=== PATIENT | male | born 1940 | race Caucasian/White ===

== ENCOUNTER 2016-04-29 09:12 | Emergency (ER) | payer MEDICAID ==
[~2016-04-29] VITALS: Wt 64.5 kg
[2016-04-29] MEDS ORDERED: BELLADONNA/PHENOBARBITAL TAB PO STA (10:09)
[2016-04-29] MEDS ORDERED: FAMOTIDINE 20 MG TAB PO STA (10:09)
[2016-04-29] MEDS ORDERED: LIDOCAINE/MYLANTA 40 ML BTL PO STA (10:09)
[2016-04-29] MEDS ORDERED: KETOROLAC 30 MG INJ IM STA (10:09)
[2016-04-29] MEDS ORDERED: FAMO40TA52 PO (11:29)
[2016-04-29] MEDS ORDERED: MAG355OR14 PO (11:29)
--- NOTE | 2016-04-29 11:31 | ERD ---
ER Documentation Chief Complaint Date/Time DATE: 04/29/16 TIME: 11:30 Chief Complaint luq pain HPI 75-year-old man complains of 2 days of left upper quadrant cramping he states it radiates up to the left chest although he has had no isolated chest pain, no exertional chest pain. He denies fevers or chills, no vomiting or diarrhea, no weight loss, no melena or blood per rectum. Patient states he has been belching more than usual as well. Patient denies headache or blurry vision, no recent travel or recent antibiotic use. ROS All systems reviewed and are negative except as per history of present illness. Medications Home Meds Active Scripts Famotidine* (Famotidine*) 40 Mg Tablet, 40 MG PO DAILY, #30 TAB Prov:ELISE GÓMZE MD 04/29/16 Mag Hydrox/Al Hydrox/Simeth (Maalox Advanced Suspension) 355 Ml Oral.susp, 2 TSP PO TID for PAIN, #24 OZ Prov:ELISE GÓMEZ MD 04/29/16 Allergies Allergies: Coded Allergies: No Known Allergy (Verified Allergy, Unknown, 05/01/07) PMhx/Soc None History of Surgery: Yes (ABDOMINAL HERNIA) Anesthesia Reaction: No Hx Neurological Disorder: No Hx Cardiac Disorders: No Hx Psychiatric Problems: No Hx Miscellaneous Medical Probl: No Hx Alcohol Use: No Hx Substance Use: No Hx Tobacco Use: No Smoking Status: Never smoker FmHx Family History: No diabetes Physical Exam Vitals Vital Signs Date Time Temp Pulse Resp B/P Pulse Ox O2 Delivery O2 Flow Rate FiO2 04/29/16 12:03 97.9 58 18 168/71 100 Room Air 04/29/16 09:23 97.8 74 20 175/90 97 Physical Exam GENERAL: Well-developed, well-nourished, well-hydrated, in no apparent distress , looks nontoxic in appearance HEENT: Moist mucous membranes, pink conjunctiva, no cervical spine tenderness or step-off deformities, no goiter, no jaundice or icterus, extraocular movements intact without pain. No submandibular induration, and no pharyngeal erythema NEURO: Alert and oriented 3, cranial nerves II through XII intact bilaterally, pupils equal round reactive to light, no focal deficits or facial asymmetry, sensation intact distally Strength 5/5 in upper and lower extremities bilaterally CARDIAC: Regular rate and rhythm, no murmurs rubs or gallops LUNGS: Clear bilaterally no wheezing crackles or stridor ABDOMEN: Soft nontender, no guarding, no rigidity, no rebound, no psoas sign no obturator sign. Normoactive bowel sounds SKIN: Warm and dry to touch, no abrasions, contusions, or hematomas, no lacerations, no ecchymosis, no target lesions, and without ulcers EXTREMITIES: No clubbing cyanosis or edema, calves are bilaterally symmetrical, no Homans sign, no popliteal cord sign. Distal pulses equal and bilateral PSYCH: Normal affect without agitation or irritability Results 24 hrs Laboratory Tests Test 04/29/16 10:21 Troponin I < 0.012ng/ml Current Medications Medications (Trade) Dose Ordered Sig/Abel Route PRN Reason Start Time Stop Time Status Last Admin Dose Admin Famotidine (Pepcid) 40 mg ONCE STAT PO 04/29/16 10:09 04/29/16 10:10 DC 04/29/16 10:17 Miscellaneous Medication (Gi Cocktail (2)) 40 ml ONCE STAT PO 04/29/16 10:09 04/29/16 10:10 DC 04/29/16 10:17 Belladonna/ Phenobarbital () 2 tab ONCE STAT PO 04/29/16 10:09 04/29/16 10:10 DC 04/29/16 10:17 Ketorolac Tromethamine (Toradol) 30 mg ONCE STAT IM 04/29/16 10:09 04/29/16 10:10 DC 04/29/16 10:17 Procedures/MDM I administered Maalox suspension, famotidine 40 mg p.o., and Toradol 30 mg intramuscular injection with good effect. EKG performed, read by me: 57 bpm, normal sinus rhythm, normal axis, no acute ST segment changes, narrow QRS complex, with good R-wave progression in precordial leads. Troponin was negative. Differential diagnoses considered, included but not limited to acute coronary syndrome, pulmonary embolism, aortic dissection, abdominal aortic aneurysm, sepsis, stroke, meningitis, encephalitis, pneumonia, appendicitis, cholecystitis , bowel obstruction, pyelonephritis, nephrolithiasis, cystitis, as well as metabolic, hematologic, and electrolyte abnormalities. As well as abscess, cellulitis, fractures, and dislocations. Patient feels much better at this time, and vital signs are normal, symptoms have improved. I did give strict instructions to return to the ED if symptoms continue or worsen, patient will otherwise follow-up with primary care physician. Patient understood instructions and agreed to plan. Departure Diagnosis: Primary Impression: Abdominal pain Abdominal location: left upper quadrant Qualified Code: R10.12 - Left upper quadrant pain Condition: Good Patient Instructions: Abdominal Pain ELISE GÓMEZ MD Apr 29, 2016 11:31
[2016-04-29 12:03] VITALS: BP 168/71; PULSE 58; RESP 18; TEMP 97.9
== END 2016-04-29 12:06 | disposition home or self-care (01) ==
LOC: E/R 09:12
DX: R10.12 Left upper quadrant pain (principal)
CPT/HCPCS: 84484; 93005; 96372; J1885; Z7502; Z7610